=== PATIENT | male | born 1955 | race African-American/Black ===

== ENCOUNTER 2022-06-20 18:06 | Emergency (ER) | payer OTHER ==
[~2022-06-20] VITALS: Ht 175.3 cm; Wt 89.0 kg
[2022-06-20 18:10] VITALS: BP 162/65
[2022-06-20] MEDS ORDERED: LIDOCAINE HCL/PF 1% 10 MG/ML 5ML VIAL INFIL ONE (22:15)
[2022-06-20] MEDS ORDERED: BACITRACIN ZINC OINT UDPKT TOP ONE (22:15)
[2022-06-20] MEDS ORDERED: CLIN-194 MT (22:55)
== END 2022-06-20 23:19 | disposition home or self-care (01) ==
LOC: ER 18:06
DX: L02.416 Cutaneous abscess of left lower limb (principal); I10 Essential (primary) hypertension
CPT/HCPCS: 10060; 99283; J3490